=== PATIENT | female | born 1930 | race Caucasian/White ===

== ENCOUNTER 2017-11-19 01:21 | Emergency (ER) | payer OTHER, MEDICARE ==
[~2017-11-19] VITALS: Ht 172.7 cm; Wt 93.0 kg
--- NOTE | 2017-11-19 01:45 | ED CARDIAC/CP/PALPITATIONS ---
History of Present Illness General Chief Complaint: Chest Pain Stated Complaint: "CHEST PAIN" Source: patient, family, old records Exam Limitations: no limitations Vital Signs & Intake/Output Vital Signs & Intake/Output Vital Signs Date Time Temp Pulse Resp B/P B/P Pulse O2 O2 Flow FiO2 Mean Ox Delivery Rate 11/19 0546 97.9 64 16 148/78 94 Room Air 11/19 0443 97.4 61 18 152/68 96 Room Air 11/19 0244 97.6 60 18 146/80 95 Room Air 11/19 0130 97.5 67 20 179/62 95 Room Air Allergies Coded Allergies: No Known Allergies (11/19/17) Core Measure Meds Pre-Hospital aspirin Triage Note: SEE NURES NOTES Triage Nurses Notes Reviewed? yes Onset: Evening Duration: hour(s):, gone now, intermittent Timing: recent history Quality/Severity: moderate, pressure Location: substernal Radiation: no radiation Activities at Onset: rest Prior Chest Pain/Card Workup: no prior cardiac workup Modifying Factors: Improves With: rest. Worsens With: breathing. Nitro Today/Relief: no nitro taken today Aspirin Today: 325 mg x 1, provided at home Associated Symptoms: shortness of breath LMP (ages 10-50): post menopausal : No Patient currently breastfeeds: No HPI: 1 day prior to admission patient complains of having left-sided chest discomfort waxing and waning resolving with rest nonradiating. She took an aspirin. She complains of pain with respiration. 4 hours prior to admission complains of recurrent chest pain unable to sleep. She denies fever chills nausea vomiting diarrhea abdominal pain shortness of breath headache dysuria rash bleeding. She currently has no pain. Past History Travel History Traveled to [place] past 21 day No Medical History Any Pertinent Medical History? none Surgical History Surgical History: non-contributory Psychosocial History What is your primary language [place] Tobacco Use: Never used Daily Tobacco Use Amount/Type: =< 4 Cigarettes daily ETOH Use: denies use Illicit Drug Use: denies illicit drug use Family History Hx Contributory? No Review of Systems Review of Systems Constitutional: Reports: no symptoms. EENTM: Reports: no symptoms. Respiratory: Reports: see HPI, cough. Denies: short of breath, sputum production. Cardiovascular: Reports: see HPI, chest pain. GI: Reports: no symptoms. Genitourinary: Reports: no symptoms. Musculoskeletal: Reports: no symptoms. Skin: Reports: no symptoms. Neurological/Psychological: Reports: no symptoms. Hematologic/Endocrine: Reports: no symptoms. Immunologic/Allergic: Reports: no symptoms. All Other Systems: Reviewed and Negative Physical Exam Physical Exam General Appearance: well developed/nourished, alert, awake, anxious, comfortable , obese Head: atraumatic, normal appearance Eyes: Bilateral: normal appearance, PERRL, EOMI. Ears, Nose, Throat: normal pharynx, normal ENT inspection, hearing grossly normal Neck: normal inspection, supple, full range of motion, no midline tenderness Respiratory: normal breath sounds, chest non-tender, no respiratory distress, quiet respiration, lungs clear Cardiovascular: regular rate/rhythm, normal peripheral pulses, norml femoral pulses equa Peripheral Pulses: 4+ carotid (R), 4+ carotid (L) Gastrointestinal: normal bowel sounds, soft, non-tender, no organomegaly Back: normal inspection, normal range of motion, no vertebral tenderness Extremities: normal inspection, normal capillary refill, normal range of motion, no edema Neurologic/Psych: no motor/sensory deficits, awake, alert, oriented x 3, normal gait, normal mood/affect, 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 Skin: intact, normal color, warm/dry Lymphatic: no anterior cervical oseas Core Measures ACS in differential dx? Yes CVA/TIA Diagnosis No Sepsis Present: No Sepsis Focused Exam Completed? No Progress Differential Diagnosis: costochondritis, hyperkalemia, hypovolemia, hyperthyroid , pancreatitis, pneumonia Plan of Care: Orders Procedure Date/time Status TROPONIN LEVEL 11/19 0450 Complete Add-on Test (ER Only) 11/19 0225 Active TOTAL TRIODOTHYROXINE 11/19 0150 Complete LIPASE 11/19 0150 Complete FREE T4 11/19 0150 Complete TSH REFLEX 11/19 0143 Complete TROPONIN LEVEL 11/19 0143 Complete MAGNESIUM 11/19 0143 Complete D-DIMER 11/19 0143 Complete COMPREHENSIVE METABOLIC PANEL 11/19 0143 Complete CBC WITHOUT DIFFERENTIAL 11/19 014 Complete EKG 11/19 0123 Active Laboratory Tests 11/19/17 0510: Troponin I < 0.01 11/19/17 0150: Anion Gap 11, Estimated GFR > 60, BUN/Creatinine Ratio 27.5 H, Glucose 97, Calcium 9.1, Magnesium 2.0, Total Bilirubin 0.5, AST 25, ALT 27, Alkaline Phosphatase 69, Troponin I < 0.01, Total Protein 6.7, Albumin 3.8, Globulin 2.9, Albumin/Globulin Ratio 1.3, Lipase 95, Free T4 1.29, Total T3 1.16, TSH &T3 & Free T4 Intrp 9.190 H, D-Dimer High Sensitivty < 200, CBC w Diff NO MAN DIFF REQ, RBC 4.60, MCV 88.6, MCH 29.6, MCHC 33.5, RDW 12.9, MPV 7.8, Gran % 51.4, Lymphocytes % 36.4, Monocytes % 8.0, Eosinophils % 3.6, Basophils % 0.6, Absolute Granulocytes 4.3, Absolute Lymphocytes 3.0, Absolute Monocytes 0.7 H, Absolute Eosinophils 0.3, Absolute Basophils 0 Diagnostic Imaging: Viewed by Me: Radiology Read. Discussed w/RAD: Radiology Read. CXR Impression: no acute abnormality, no infiltrates, normal size heart, normal mediastinum Initial ED EKG: RBBB, LVH, nonspecific ST T wave chg Rhythm Strip: normal sinus rhythm Departure Departure Time of Disposition: 0600 Disposition: HOME OR SELF CARE Condition: Stable Clinical Impression Primary Impression: Chest pain syndrome Referrals: Layo VELASQUEZ,Emiliano Lopez (PCP/Family) Chary VELASQUEZ,Francisco Call for cardiology follow up. Departure Forms: Customer Survey General Discharge Information Critical Care Note Critical Care Note Critical Care Time: 30-74 min (35)
[2017-11-19 02:05] LABS: ABSOLUTE BASOPHIL COUNT 0 /CUMM (0.0-0.2); ABSOLUTE EOSINOPHIL COUNT 0.3 /CUMM (0.0-0.7); ABSOLUTE GRANULOCYTE CT 4.3 /CUMM (1.4-6.5); ABSOLUTE MONOCYTE COUNT 0.7 /CUMM (0.10-0.60); BASOPHIL % 0.6 % (0.0-2.0); EOSINOPHIL % 3.6 % (0-5); GRANULOCYTE % 51.4 % (42.2-75.2); HEMATOCRIT 40.8 % (37-47); MEAN CORPUSCULAR HGB 29.6 PG (27.0-31.0); MEAN CORPUSCULAR HGB CONC 33.5 G/DL (33.0-37.0); MEAN CORPUSCULAR VOLUME 88.6 FL (81.0-99.0); MEAN PLATELET VOLUME 7.8 FL (7.4-10.4); PLATELET COUNT 286 /CUMM (130-400); RBC DISTRIBUTION WIDTH 12.9 % (11.5-14.5); WHITE BLOOD CELL COUNT 8.3 /CUMM (4.8-10.8)
--- NOTE | 2017-11-19 02:12 | RADIOLOGY REPORT ---
EXAMINATION: CHEST 1 VIEW CLINICAL INFORMATION: Chest pain. COMPARISON: None. TECHNIQUE: An AP view of the chest is provided. FINDINGS: The cardiac silhouette is not enlarged. The mediastinal and hilar contours are unremarkable. There are neither pleural effusions nor pneumothoraces. There are no consolidations. The osseous structures are unremarkable. IMPRESSION: No evidence for acute disease.
[2017-11-19 05:46] VITALS: BP 148/78
== END 2017-11-19 06:44 ==
LOC: ERH 01:21
PROVIDERS: Emergency Medicine
DX: R07.1 Chest pain on breathing (principal)
CPT/HCPCS: 71045; 93005; 93010